=== PATIENT | female | born 1965 | race Caucasian/White ===

== ENCOUNTER 2017-06-16 06:55 | Day surgery (SDC) | payer OTHER ==
[~2017-06-16] VITALS: Ht 162.6 cm; Wt 70.8 kg
[~2017-06-16 06:55] MED LIST: FAMOTIDINE10 MG PO; LIALDA1.2 GM PO; MARLISSA1 EACH PO
[2017-06-16] MEDS ORDERED: MULTIVITAMINS1 EAC7 PO (07:10)
[2017-06-16] MEDS ORDERED: MELATONIN1 MG PO (07:11)
--- NOTE | 2017-06-16 10:51 | NUR ---
06/16/17 1051 Lulu Whelan 1032 PT ARRIVED TO PACU ASLEEP, MAINTAINING OWN AIRWAY, O2 SAT 100% ON 8L VIA MASK. 1047 O2 SAT 100%, O2 DECREASED TO 6L VIA MASK.
--- NOTE | 2017-06-16 11:58 | NUR ---
PATIENT GIVEN CRACKERS AND JELLO TO EAT. MEDICATED WITH 1 TABLET OF PERCOCET. CALL LIGHT WITHIN REACH. FAMILY AT BEDSIDE.
[2017-06-16] MEDS ORDERED: PERCOCET 5-3251 EACH PO (12:16)
[2017-06-16] MEDS ORDERED: IBUPROFEN800 MG PO (12:16)
--- NOTE | 2017-06-16 12:47 | NUR ---
PATIENT STATES PAIN IMPROVED. VISITING WITH FAMILY. VS CHECKED. NO NEEDS AT THIS TIME. CALL LIGHT WITHIN REACH.
--- NOTE | 2017-06-16 14:29 | NUR ---
PT SMILING, FRIENDLY AND INVITED ME INTO HER RM. SHE WAS SUPPORTED BY HER SIGNIFICANT OTHER, PHARMACY ORDER ENTRY TECHNICIAN AND FAMILY. SHE SEEMED INFORMED, AND REQUESTED PRAYER. WILL CONTINUE TO FOLLOW NEEDED
--- NOTE | 2017-06-16 15:20 | NUR ---
1430: PATIENT TOLERATED GRILLED CHEESE SANDWICH AND SODA. 1515: PATIENT MEDICATED FOR PAIN WITH 1 TABLET OF PERCOCET. PATIENT ASSISTED TO STAND AT BEDSIDE. PATIENT DID C/O SOME LIGHTHEADEDNESS, BUT TOLERATED IT WELL. PATIENT ASSISTED BACK TO BED. BANKS DC'D WNL. PATIENT TOLERATED BANKS DC WELL. SCDs REPLACED AND TURNED ON. CALL LIGHT WITHIN REACH.
--- NOTE | 2017-06-16 16:44 | NUR ---
1615: PATIENT ASSISTED OOB AND TO BATHROOM. GAIT STEADY. VOID WITHOUT DIFFICULTY. STAND BY ASSIST BACK TO ROOM. 1635: PATIENT GOT DRESSED WITH HELP FROM SIGNIFICANT OTHER. IV DC'D WNL. TIP INTACT. DRESSING APPLIED. DISCHARGE INSTRUCTIONS GIVEN TO PATIENT AND SO. PATIENT DISCHARGED TO HOME VIA WHEELCHAIR WITH SO.
--- NOTE | 2017-06-18 11:32 | OR ---
[facility] [address] [place], [place] [address] Signed DATE OF OPERATION: 06/16/2017 SURGEON: Raúl Bhat MD PREOPERATIVE DIAGNOSES: Heavy menstrual bleeding, postcoital bleeding, and uterine fibroids. POSTOPERATIVE DIAGNOSES: Heavy menstrual bleeding, postcoital bleeding, and uterine fibroids. PROCEDURE: Total laparoscopic hysterectomy with bilateral salpingectomy and cystoscopy. LOST AND FOUND CLERK: Dr. Cartagena. ANESTHESIA: General. ESTIMATED BLOOD LOSS: 50 mL. SPECIMEN: Uterus and both fallopian tubes. DRAINS: Serna to bladder. FINDINGS: Cervix thick, closed. Uterus slightly enlarged, uterine cavity sounding to 9 cm. There were several small subserosal fibroids, mostly near the fundus and 1 small pedunculated fibroid arising from the left posterior fundus. The anterior cul-de-sac was free of any endometriosis or adhesions. Posterior cul-de-sac was free of any endometriosis or adhesions. The left tube was normal length and normal pink fimbriated end, and no adhesions. Left ovary is normal size and shape without any evidence of endometriosis or adhesions. The right tube was normal length and normal pink fimbriated end and no adhesions. The right ovary is normal size and shape without any evidence of endometriosis or adhesions. Rest of the pelvis was free of any masses or adhesions. DESCRIPTION OF THE PROCEDURE: Electronically Signed By: RAÚL BHAT MD 06/18/17 1132 PATIENT NAME: DHRUV WILCOXN OPERATIVE REPORT DATE OF : 69 PHYSICIAN: RAÚL BHAT MD REPORT #: [id number] REPORT IS CONFIDENTIAL AND NOT TO BE RELEASED WITHOUT AUTHORIZATION [facility] [address] [place], [place] [address] Signed The patient was brought into the operating room and placed in supine position. After adequate general anesthesia was obtained, she was placed in dorsal lithotomy position, prepped and draped in the usual sterile fashion. Weighted speculum was placed in the vagina and the anterior lip of the cervix was grasped with an Allis clamp. Uterine cavity was sounded to 9 cm and then the BRIKA uterine manipulator was carefully inserted into the uterus. The balloon was filled with sterile water and then after removing the Allis clamp and weighted speculum, the cervical cap was slid up the manipulator to go around the cervix, and the vaginal cup slid up and tightened in place against the cervical cap to hold this in place. Serna catheter was placed in the bladder. Attention was then drawn to the abdomen. A small infraumbilical skin incision was made with a scalpel after injecting the area with 0.5% Marcaine with epinephrine. The direct entry 5 mm trocar and sleeve were used with 5 mm laparoscope inserted to gently insert the trocar through the abdominal wall into the abdomen under direct visualization. The abdominal wall was lifted during this procedure. After entering the abdomen, trocars were removed and laparoscope entered the abdomen, carbon dioxide was used as a distending medium. A 5 mm trocar and sleeve were then placed in the abdomen in the left lateral side just below the level of the umbilicus after transilluminating the abdominal wall to avoid any vessels, and injecting 0.5% Marcaine with epinephrine and making a small haleigh with skin incision. Trocar was removed and blunt grasper inserted. On the right side, again the abdominal wall was transilluminated. The area was injected with 0.5% Marcaine and epinephrine and a slightly larger incision was made in the skin using a scalpel. Veress needle with expandable sleeve was then placed in the abdomen under direct visualization. The Veress needle was removed and the 10 mm blunt trocar with sleeve was then gently placed through the expandable sleeve stretching the small opening in the fascia. The trocar was removed and second blunt forceps inserted. The above findings were confirmed. The LigaSure bipolar Maryland forceps were then used for the dissection. The left fallopian tube was cauterized and cut free along the mesosalpinx and then the proximal portion of the tube was cauterized and cut removing the tube, which was pulled out through the lateral port. The upper pedicle was then cauterized in several places and cut, individually incorporating the uteroovarian ligament, the round ligament, and upper part of the broad ligament. When both leaves of the broad ligament could be identified, the Maryland forceps were used to cauterize along the broad ligament down to and around the cervix anteriorly and posteriorly staying within the palpated cervical cap. The uterine vessels were then exposed and these were cauterized in several places inside the cervical cap and then cut. The paravaginal tissue around the same area was cauterized and cut on the left side. On the right side, the Maryland forceps were again used to cauterize the mesosalpinx and down the length of the tube, and then the proximal portion of the tube was cauterized across this, cut, and removed through the lateral port. Again, the upper pedicle was cauterized in several places and cut incorporating the round ligament, the uteroovarian ligament, the upper broad ligament. The broad ligament, anterior and Electronically Signed By: RAÚL BHAT MD 06/18/17 1132 PATIENT NAME: DHRUV WILCOX CRISTINA OPERATIVE REPORT DATE OF : 69 PHYSICIAN: RAÚL BHAT MD REPORT #: [id number] REPORT IS CONFIDENTIAL AND NOT TO BE RELEASED WITHOUT AUTHORIZATION [facility] [address] [place], [place] [address] Signed posterior leaves were then separately cauterized and cut down the length of the broad ligament extending medially to join the previous dissection anterior and then same thing was done posterior. This exposed the right-sided uterine vessels, which were cauterized several places and cut near the cervical cup and the paravaginal tissue cauterized and cut so that the vaginal mucosa could be seen around the rim of the cervical cap. The Sonicision instrument was then placed through the sleeve and the vaginal mucosa opened in midline posteriorly in the groove of the cervical cap. The Sonicision was then used to cut the vaginal mucosa in the groove of the cap from posterior to the anterior on the left side, and then posterior to anterior on the right side. This the uterus and cervix from the vagina. The uterus was held in placed in the cuff and attention was drawn to the vagina. The VCare uterine manipulator was removed and Allis clamp was used to grasp the cervix, which could be seen in the vagina and the uterus was removed. A glove with lap pad within was placed in the vagina so the pneumoperitoneum could be re-established. The abdomen was re-insufflated. Suction irrigation was used to clean out the pelvis. One small vessel was noted to be bleeding at the left angle and this was identified and grasped with the Maryland forceps and then cauterized twice taking care to stay in the angle and not go any deeper to avoid ureters. When good hemostasis was obtained, the entire pelvis was irrigated, suctioned, and examined. The Endo stitch barbed suture was then placed through the right sleeve and the right uterosacral ligament, and starting at the right uterosacral ligament posteriorly the vaginal mucosa was grasped and the needle passed through from the uterosacral ligament into the vaginal mucosa and the suture pulled through. The needle was then placed through a small loop and the end of the suture and tightened in place. A suture was then placed through the right side into angle incorporating the vaginal mucosa, avoiding the bladder. After passing this suture, the suture was tightened and then the entire cuff closed going across incorporating first the posterior vaginal mucosa from posterior to anterior into the mucosa and then from the mucosa out the anterior portion, each time taking care to make sure the bladder was well away from the area of dissection and incorporating the mucosa and staying within the 2 uterosacral ligaments. Upon reaching the left uterosacral ligament and the angle, the suture was taken back. Three stitches through the combined closure to lock this stitch in place and then the suture was cut with laparoscopic scissors. The entire pelvis was irrigated, suctioned, examined, and noted to have good hemostasis. At this point, the Evicel was placed on the entire surgical site to further help with control of bleeding and the gas was allowed to escape and the area was noted to remain with good hemostasis even under low pressure. Rest of the gas was allowed to escape. All sleeves were removed. The 3 skin incisions were closed with subcuticular stitches. The fascia did not need to be closed from the right side because the stretching left a small enough hole. Electronically Signed By: RAÚL BHAT MD 06/18/17 1132 PATIENT NAME: DHRUV WILCOX OPERATIVE REPORT DATE OF : 69 PHYSICIAN: RAÚL BHAT MD REPORT #: [id number] REPORT IS CONFIDENTIAL AND NOT TO BE RELEASED WITHOUT AUTHORIZATION [address] [address] Signed The glove covered sponge was removed from the vagina. Serna was removed from the bladder and the cystoscope was carefully placed in the urethra and entered the bladder under direct visualization. Sterile water was used as distending medium. The bladder dome both sides and posteriorly were examined and noted to have no sutures or bruising or lesions within. Both ureteral orifices were identified and both showed good strong flow of urine into the bladder, so the cystoscope was removed and the Serna was placed back in the bladder. The patient tolerated the procedure well and went to recovery room in good condition. The sponge, needle, and instrument counts were correct at the end of procedure. The uterus and both fallopian tubes were sent to Pathology for identification. Raúl Bhat MD MJB/MODL /[id number] cc: REJI Head Electronically Signed By: RAÚL BHAT MD 06/18/17 1132 PATIENT NAME: DHRUV WILCOX OPERATIVE REPORT DATE OF : 69 PHYSICIAN: RAÚL BHAT MD REPORT #: [id number] REPORT IS CONFIDENTIAL AND NOT TO BE RELEASED WITHOUT AUTHORIZATION
== END 2017-06-16 16:35 | disposition home or self-care (01) ==
LOC: OPS 06:55 → DS 06:55 → OPS 09:30
PROVIDERS: General Practice
PROC: 0UT94ZZ Resection of Uterus, Percutaneous Endoscopic Approach (ICD-10-PCS; principal; 2017-06-16 09:30)
PROC: 0UB74ZZ Excision of Bilateral Fallopian Tubes, Percutaneous Endoscopic Approach (ICD-10-PCS; 2017-06-16 09:30)
DX: D25.2 Subserosal leiomyoma of uterus (principal); N83.8 Other noninflammatory disorders of ovary, fallopian tube and broad ligament; D25.0 Submucous leiomyoma of uterus; D25.1 Intramural leiomyoma of uterus; N87.9 Dysplasia of cervix uteri, unspecified; N84.0 Polyp of corpus uteri; J30.2 Other seasonal allergic rhinitis; Z90.11 Acquired absence of right breast and nipple; Z98.890 Other specified postprocedural states; Z88.5 Allergy status to narcotic agent; Z88.8 Allergy status to other drugs, medicaments and biological substances; Z79.899 Other long term (current) drug therapy
CPT/HCPCS: 00944; J0690; J1100; J1644; J1885; J2250; J2370; J2405; J3010; J7120

== ENCOUNTER 2020-08-06 14:56 | Observation (INO) | payer OTHER ==
[~2020-08-06] VITALS: Ht 162.6 cm; Wt 71.0 kg
[~2020-08-06 14:56] MED LIST changes: +IBUPROFEN800 MG PO; +MELATONIN1 MG PO; +MULTIVITAMINS1 EAC7 PO; +PERCOCET 5-3251 EACH PO
[2020-08-06] MEDS ORDERED: OMEPRAZOLE20 MG PO (15:49)
[2020-08-06] MEDS ORDERED: MESALAMINE1.2 GM PO (15:49)
[2020-08-06] MEDS ORDERED: LORATADINE10 MG PO (15:49)
--- NOTE | 2020-08-06 18:36 | CONS ---
[facility] [address] [place], [place] [address] Signed DATE OF CONSULTATION: CHIEF COMPLAINT: Right lower quadrant abdominal pain. HISTORY OF PRESENT ILLNESS: Dhruv is a 55-year-old female with chronic ulcerative colitis on mesalamine. For five days now, she has had dull pain in the right lower quadrant. It was not getting any better. She finally decided to come in as an outpatient for a CT scan. She has uncomplicated appendicitis. She had been sent over the emergency room and I was asked to see her as a general surgeon on-call. In the meantime, she has been started on some IV fluids along with her Rocephin and Flagyl. PAST MEDICAL HISTORY: Ulcerative colitis, gastroesophageal reflux disease, and seasonal allergies. PAST SURGICAL HISTORY: Includes a laparoscopic partial hysterectomy, lumpectomy with bilateral breast implants for reconstruction in [facility]. SOCIAL HISTORY: She does not smoke. She has a drink once or twice a month. Her lifelong partner is Cristian Valdez at [phone]. Her mother is Shaina Tubbs at [phone]. She has 2 children born vaginally. Mathew Guevara is her physician's senior agricultural assistant and Dr. Vitaliy Altman is her rounding machine operator. She prefers the [facility] in [place] since they live in [place]. FAMILY HISTORY: Dad was a smoker and ended up with a stroke, coronary artery disease and [place]. Mom has rheumatoid arthritis. REVIEW OF SYSTEMS: Dhruv helped her family member with mastectomy back at the end of June 2020. The family member ended up with COVID the day or two after the surgery. Dhruv is quite convinced she had symptoms as well. When she spoke with her primary care provider, they did not feel it was worthwhile at that time to check a COVID test. In the meantime, she has recovered nicely from that. ALLERGIES: Iodine, contrast and meperidine. MEDICATIONS: Mesalamine, omeprazole, and loratadine. Electronically Signed By: STEPHY ACOSTA MD 08/06/20 1836 PATIENT NAME: DHRUV WILCOX CONSULTATION DATE OF : 69 REPORT #: [id number] PHYSICIAN: STEPHY ACOSTA MD PCP: MATHEW GUEVARA REPORT IS CONFIDENTIAL AND NOT TO BE RELEASED WITHOUT AUTHORIZATION [facility] [address] [place], [place] [address] Signed PHYSICAL EXAMINATION: VITAL SIGNS: Her blood pressure is 135/59, heart rate 106, respiratory rate 14, temperature is 98.3. She is 100% on room air. She is 5 feet 4 inches, 70 kg. GENERAL: Dhruv is a 55-year-old female, lying supine semi-recumbent in her ER bed. Her friend Cristian is with her. Our nurse is also with us. She does not appear systemically ill or toxic. She is an excellent historian. LUNGS: Clear to auscultation bilaterally. HEART: Slightly tachycardic without murmur. ABDOMEN: Generally soft, flat with some mild tenderness at McBurney's point. LABORATORY DATA: Her CBC and BMP are pending, but the urinalysis was unremarkable. The COVID test had been sent, it is pending. EKG showed slight sinus tachycardia. RADIOGRAPHIC STUDIES: CT scan of abdomen and pelvis is reviewed and one could see a thickened inflamed appendix. ASSESSMENT AND PLAN: Dhruv is a 55-year-old female who presents with what appears to be a mild acute appendicitis. However, she did have a full breakfast. She ate some cheese and crackers at lunch and ended up drinking some Propel an hour and half ago. I think at this point we are going to admit her to our medical floor and we will give her IV hydration along with her antibiotics and pain control and I will be talking to my Anesthesia provider about when we can do this case. In the meantime, I explained to Dhruv the above findings. We reviewed the location of function of the appendix. We discussed laparoscopic versus open appendectomy. She and her friend Cristian understand the expected intraop and postop course. They have expressed understanding and agreed the above plan. Stephy Acosta MD ALB/MODL /[id number] cc: REJI Weaver MD Electronically Signed By: STEPHY ACOSTA MD 08/06/20 1836 PATIENT NAME: DHRUV WILCOX CONSULTATION DATE OF : 69 REPORT #: [id number] PHYSICIAN: STEPHY ACOSTA MD PCP: MATHEW GUEVARA REPORT IS CONFIDENTIAL AND NOT TO BE RELEASED WITHOUT AUTHORIZATION [address] [address] Signed Stephy Acosta MD Copies: MATHEW GUEVARA CHARLES MD BOWER, ANDREW L MD ~ Electronically Signed By: STEPHY ACOSTA MD 08/06/20 1836 PATIENT NAME: JERIDHRUV CRISTINA CONSULTATION DATE OF : 69 REPORT #: [id number] PHYSICIAN: STEPHY ACOSTA MD PCP: MATHEW GUEVARA REPORT IS CONFIDENTIAL AND NOT TO BE RELEASED WITHOUT AUTHORIZATION
--- NOTE | 2020-08-06 18:49 | NUR ---
08/06/201848 Bailey Jean-Baptiste8 INTO CCU RM 130 PATIENT BREATHING REGULAR AND EVEN, OXYGEN SATURATION 100% 6L MASK. PATIENT DROWSY, RESPONDS TO VERBAL STIMULI. DRESSING LAP SITES C/D/I. PATIENT BLADDER DRAINED AT END OF PRECEDURE.
--- NOTE | 2020-08-06 19:05 | NUR ---
PACU NURSE OUT OF ROOM, REPORT GIVEN TO KING RN AND THEN TO THIS RN. PATIENT CURRENTLY ON THE MONITOR, VS STABLE.
--- NOTE | 2020-08-06 19:25 | NUR ---
RT IN ROOM. PATIENT TOLERATING ROOM AIR. VS STABLE. DENIED ANY NEEDS. CALL LIGHT IN REACH.
--- NOTE | 2020-08-06 20:00 | NUR ---
PATIENT IS ALERT. REPORTS FEELING "WOOZY" AFTER SURGERY. VS STABLE. PAIN 5/10, MILD NAUSEA. PRN PAIN MEDS PROVIDED. SIPS OF WATER ENCOURAGED. PATIENT VS STABLE. DENIED NEED TO VOID. LAP SITES ON ABD WNL, SMALL AMOUNT OF DRAINAGE NOTED ON DRESSINGS. PATIENT ENCOURAGED TO TAKE DEEP BREATHS, PILLOW PROVIDED FOR SPLINTING. ICE PACK OFFERED, PATIENT COLD AT THIS TIME. WARM BLANKET APPLIED. IV FLUIDS STARTED PER ORDER, SITE WNL. PATIENT'S CONTACT AT BEDSIDE. PROVIDED GLASSES FROM [employer] BAG.
--- NOTE | 2020-08-06 21:07 | NUR ---
PATIENT ALERT. USING HER CELLPHONE. DENIES ANY NEEDS AT THIS TIME. VS STABLE.
--- NOTE | 2020-08-06 22:14 | NUR ---
PATIENT UP TO THE BATHROOM. VOIDED WELL. WASHED HER FACE. PATIENT THEN FELT NAUSEOUS AND HAD SOME DRY HEAVES. ASSISTED PATIENT TO BED. PROVIDED PHENERGAN SLOWLY OVER 10 MINS. PATIENT DID NOT VOMIT. EMESIS BAG IN REACH. SCHEDULED ABX STARTED, IV SITE WNL. LIGHTS DIMMED. ICE PACK PROVIDED TO ABD. PATIENT DENIED FURTHER NEEDS. CALL LIGHT IN REACH.
--- NOTE | 2020-08-06 23:00 | NUR ---
PATIENT RESTING IN BED WATCHING TV. REPORTS GOOD PAIN CONTROL AT REST. ICE PACK IN PLACE. DRESSINGS INTACT. NO NAUSEA. IV FLUIDS PER ORDER, SITE WNL. VS STABLE.
--- NOTE | 2020-08-07 01:30 | NUR ---
PATIENT UP TO THE BATHROOM. TOLERATED ACTIVITY WELL. VOIDED QS. NO NAUSEA. PAIN MILD WITH MOVEMENT. WARM BLANKET PROVIDED. JELLO AND WARM BROTH PROVIDED PER REQUEST. PATIENT TOLERATED 250 ML WATER AT THIS TIME. NO OTHER NEEDS. CALL LIGHT IN REACH.
--- NOTE | 2020-08-07 05:21 | NUR ---
PATIENT UP TO THE BATHROOM. STEADY ON HER FEET. VOIDED QS. PAIN TOLERABLE AT THIS TIME. FRESH ICE PACKS PROVIDED. VS STABLE. IV FLUIDS PER ORDER, SITE WNL. CALL LIGHT IN REACH.
--- NOTE | 2020-08-07 06:19 | NUR ---
MORNING LABS DRAWN FOR IV SITE. PATIENT REPORTS PAIN 8/10 WITH SMALL MOVEMENTS. PROVIDED PATIENT WITH JELLO AND 2 SALTINES. PATIENT TOLERATED WELL. PRN NORCO PROVIDED. NO NAUSEA. ICE APPLIED TO ABD. IV ABX PER ORDER. NO FURTHER NEEDS AT THIS TIME. CALL LIGHT IN REACH.
--- NOTE | 2020-08-07 06:57 | OR ---
[facility] [address] [place], [place] [address] Signed DATE OF OPERATION: 08/06/2020 SURGEON: Stephy Acosta MD PREOPERATIVE DIAGNOSIS: Acute suppurative appendicitis. POSTOPERATIVE DIAGNOSIS: Acute suppurative appendicitis. PROCEDURE: Laparoscopic appendectomy. ESTIMATED BLOOD LOSS: Minimal. INDICATIONS: Dhruv is a 55-year-old female, who was sent to our radiology department with five days of right lower quadrant abdominal pain. Her CT scan confirmed her thickened inflamed appendix. She was sent over to the emergency room. Once I finished operating, went over to see her about 30 minutes later. Her laboratory work was still pending. Her COVID test came back positive. She told us that her family member had a mastectomy on July 02, 2020, and tested positive for COVID the following day, within a few days she developed symptoms. After conferring with her primary care provider, they decided not to proceed with the COVID test. She recovered from her symptoms and is now doing quite well. In fact, after five days of right lower quadrant abdominal pain she does not even appear particularly sick or ill, although she is tender in the right lower quadrant. Again, the CT scan confirmed her appendicitis. In the meantime, we made arrangements for her to come over to the operating room to have her surgery done. I explained to Dhruv and her lifelong partner the above findings. We discussed the location and function of the appendix. We discussed laparoscopic versus open appendectomy. We had reviewed the expected intraop and postop course. We did review the risks including, but not limited to bleeding, infection, scarring, change in contour of the skin, damage to bowel, appendiceal stump leak, postoperative intraabdominal abscess, incisional hernias, and other unforeseen comorbidities. They had expressed understanding and wished to proceed. DESCRIPTION OF PROCEDURE: Dhruv was taken into the operating room and placed in the supine position under general endotracheal tube anesthesia. She was given preoperative antibiotics along with Electronically Signed By: STEPHY ACOSTA MD 08/07/20 0657 PATIENT NAME: DHRUV WILCOX OPERATIVE REPORT DATE OF : 69 REPORT #: [id number] PHYSICIAN: STEPHY ACOSTA MD PCP: MATHEW LANGLEY REPORT IS CONFIDENTIAL AND NOT TO BE RELEASED WITHOUT AUTHORIZATION [facility] [address] [place], [place] [address] Signed subcutaneous heparin. SCDs were utilized. She told the nurse she had urinated just before coming to the OR and felt she had emptied her bladder. When we placed the [place] trocar above the umbilicus, we could see the bladder was one-half to 3 cores away full. Consequently, we placed our suprapubic 5 mm trocar site to a higher than usual. We also placed our trocar in the right subcostal position as well. The bowel was rotated out of the way and her appendix was curling around the cecum towards the lateral abdominal wall. It was elevated into the right upper quadrant. We cleared off the base with the cautery and divided the appendix from the cecum with the help of a linear stapler. We then used our vascular load on the mesoappendix and divided all with good hemostasis. The appendix was then placed into an EndoCatch bag and taken out through the right subcostal trocar site. We used our laparoscopic suturing device to pass 0-Vicryl suture x2 on either side of the fascia of the right subcostal trocar site. These two sutures were tied down to close the fascia primarily. The gas was allowed to escape and the remaining two trocars were removed. The appendix was passed off the table for photodocumentation. We closed the fascia of the supraumbilical trocar site with interrupted simple [id number] 0-Vicryl sutures. Local anesthetic was injected into all 3 trocar sites. Each trocar site was irrigated and suctioned out until clear. The skin and dermis of each trocar site were closed with interrupted 3-0 subcuticular Monocryl sutures. Dry gauze and tape were applied to all three incisions. After this, Dhruv was left intubated and a Serna catheter was placed with return of clear yellow urine without difficulty. We are going to remove that Serna catheter in the recovery room once the bladder was completely empty. Stephy Acosta MD ALB/MODL /[id number] cc: REJI Weaver MD Copies: MATHEW LANGLEY Electronically Signed By: STEPHY ACOSTA MD 08/07/20 0657 PATIENT NAME: DHRUV WILCOX OPERATIVE REPORT DATE OF : 69 REPORT #: [id number] PHYSICIAN: STEPHY ACOSTA MD PCP: MATHEW LANGLEY REPORT IS CONFIDENTIAL AND NOT TO BE RELEASED WITHOUT AUTHORIZATION [address] [place], [place] [address] Signed STEHPY ACOSTA MD ~ Electronically Signed By: STEPHY ACOSTA MD 08/07/20 0657 PATIENT NAME: DHRUV WILCOX OPERATIVE REPORT DATE OF : 69 REPORT #: [id number] PHYSICIAN: STEPHY ACOSTA MD PCP: MATHEW LANGLEY REPORT IS CONFIDENTIAL AND NOT TO BE RELEASED WITHOUT AUTHORIZATION
--- NOTE | 2020-08-07 08:31 | NUR ---
Helped pt. to bathroom, took vitals, refilled water, gave breakfast picked up joseluis. no other needs at this time. call light with in reach.
--- NOTE | 2020-08-07 08:45 | NUR ---
PT ATTENDS CHANGED, INCONTINENT OF LARGE AMOUNT OF SONI URINE. PT REPOSITIONED UP IN BED FOR COMFORT, TWO PILLOWS UNDER HIPS FOR SUPPORT. PT STATES "OUCH" WHEN ROLLED FROM SIDE TO SIDE. TYLENOL SUPPOSITORY GIVEN FOR PAIN/DISCOMFORT.
--- NOTE | 2020-08-07 10:20 | NUR ---
PT UP TO THE CHAIR INDEPENDENTLY. PT GIVEN TWO TABS NORCO FOR ABD PAIN 6/10. PT TAKES WITH APPLESAUCE. PT IS ALERT AND ORIENTED X4. PT DENIES NAUSEA AND SOB. INCISION SITE IS INTACT, NO DRAINAGE NOTED, PT HAS ICE PACK IN PLACE.
--- NOTE | 2020-08-07 11:32 | NUR ---
SPOKE WITH DIAGNOSTIC RADIOLOGIST. PATIENT IS COVID + SO WILL NOT ENTER ROOM. PATIENT IS INDEPENDENT/HAS PCP, WILL FOLLOW UP WITH SURGEON AT DISCHARGE AND WILL DISCHARGE HOME. IF ANYTHING ARISES OF CONCERN THEY WILL CONTACT CASE MANAGEMENT. WILL DEFER FURTHER ASSESSMENT.
--- NOTE | 2020-08-07 11:33 | NUR ---
PT AIDE RAM, HAD LAP APPY. IS TO DC TODAY. LEFT G.POST AND OTHER MATERIAL FOR PT WITH THAIS ZAMORA. WILL FOLLOW
--- NOTE | 2020-08-07 11:50 | NUR ---
PT SITTING UP IN THE CHAIR, STATES "I'M HURTING JUST SITTING HERE", 0.3 MG IV DILAUDID GIVEN. PT HAS BEEN UP TO AMBULATE TO THE BATHROOM THREE TIMES INDEPENDENTLY TO VOID. PT REMAINS ALERT AND ORIENTED X4 ALL SHIFT. PT BACK TO BED FROM CHAIR AT THIS TIME, STATES "I DIDN'T SLEEP VERY WELL LAST NIGHT, I THINK I MIGHT TRY TO TAKE A NAP". PT DENIES LUNCH AT THIS TIME, STATES "I STILL FEEL FULL". BOWEL TONES ARE HYPOACTIVE. ALL VITALS ARE WNL. LAP INCISION SITES ARE INTACT, NO DRAINAGE NOTED, PT HAS ICE PACK IN PLACE.
--- NOTE | 2020-08-07 12:18 | EKG ---
[facility] [address] [facility] [place], [place] [address] Signed Sinus tachycardia Otherwise normal ECG No previous ECGs available Confirmed by LIZETH THURSTON MD ([id number]) on 08/07/2020 12:18:15 PM Electronically Signed By: LIZETH THURSTON MD 08/07/20 1218 PATIENT NAME: DHRUV WILCOX CRISTINA Electrocardiogram DATE OF : 69 PHYSICIAN: LIZETH THURSTON MD REPORT #: [id number] REPORT IS CONFIDENTIAL AND NOT TO BE RELEASED WITHOUT AUTHORIZATION
--- NOTE | 2020-08-07 13:33 | NUR ---
PT APPEARS TO BE SLEEPING, RESP EVEN AND UNLABORED, NO OBSERVABLE DISTRESS.
--- NOTE | 2020-08-07 19:38 | NUR ---
SHIFT REPORT RECEIVED FROM CODY PLASCENCIA. PT RESTING IN BED, WATCHING TV. CALL LIGHT IN REACH.
--- NOTE | 2020-08-07 20:50 | NUR ---
ASSESSMENT, VS AND I&O COMPLETED. UNABLE TO LISTEN TO LUNGS, HEART AND BOWELS DUE TO PAPR. HR 74, RR EVEN, UNLABORED @ 16. PT REPORTS FLATUS. PT STATES HSE HAS NO PAINB AT THIS TIME BUT DID HAVE EMESIS AFTER DINNER. SHE IS ABLE TO KEEP FLUIDS DOWN AND HAS NO NAUSEA AT THIS TIME. INCISIONS WNL, OPEN TO AIR AND DRY. ABD SOFT, TENDER, MILDLY DISTENDED. IV WNL, CDI, FLUSHED WELL. CMS INTACT. IUV FLUYIDS INFUSING PER ORDER. NO OTHER NEEDS AT THIS TIME. CALL LIGHT IN REACH.
--- NOTE | 2020-08-07 21:55 | NUR ---
SCHEDULED MEDS PROVIDED. ICE WATER, CRACKERS, JELLO AND A COLD PACK PROVIDED. NO OTHER NEEDS AT THIS TIME. CALL LIGHT IN REACH.
--- NOTE | 2020-08-07 22:33 | NUR ---
PT STATES SHE HAS NAUSEA, PRN NAUSEA MED PROVIDED. IV FLUIDS INFUSING PER ORDER. PT PAIN 0/10 LAYING IN BED. NO OTHER NEEDS AT THIS TIME. CALL LIGHT IN REACH.
--- NOTE | 2020-08-08 00:47 | NUR ---
ASSESSMENT, VS AND I&O COMPLETED. PT DENIES PAIN WHILE AT REST. INCISIONS WNL, OCCUPATIONAL THERAPIST ASSISTANTS. IV WNL, IV FLUIDS INFUSING PER ORDER. ABD SOFT, TENDER, BOWEL TONES ACTIVE. CMS INTACT. NO OTHER NEEDS AT THIS TIME. CALL LIGHT IN REACH.
--- NOTE | 2020-08-08 01:52 | NUR ---
PT RESTING IN BED, EYES CLOSED. RR EVEN, UNLABORED. IV FLUIDS INFUSING PER ORDER. CALL LIGHT IN REACH.
--- NOTE | 2020-08-08 02:19 | NUR ---
PT RESTING WITH EYES CLOSED. WAKES WHEN RN ENTERS ROOM. NEW BAG IV FLUIDS PROVIDED. IV WNL. NO OTHER NEEDS AT THIS TIME. CALL LIGHT IN REACH.
--- NOTE | 2020-08-08 03:00 | NUR ---
PT RESTING IN BED, EYES CLOSED. RR EVEN, UNLABORED. IV FLUIDS INFUSING PER ORDER. CALL LIGHT IN REACH.
--- NOTE | 2020-08-08 05:54 | NUR ---
ASSESSMENT, VS AND I&O COMPLETED. SCHEDULED MED PROVIDED. PT ABD PAIN 10/22, ICE PACK PROVIDED. IV WNL. ABD SOFT, TENDER, BOWEL TONES ACTIVE. INCISIONS WNL, OPEN TO AIR, DRY. CMS INTACT. SCDs ON. LUNGS CLEAR, HEART TONES REGULAR. GCS 15, A&O X4. NO OTHER NEEDS AT THIS TIME. CALL LIGHT IN REACH.
--- NOTE | 2020-08-08 08:53 | NUR ---
Took pt. vitals. picked up room. no other needs at this time. call light with in reach
--- NOTE | 2020-08-08 09:03 | NUR ---
PT IS AWAKE AND ALERT X4, DENIES SOB AND NAUSEA. IV SITE IS INTACT, FLUSHES EASILY, SOME GENERALIZED EDEMA NOTED IN RT LOWER ARM, WILL CONTINUE TO MONITOR. PT ABLE TO AMBULATE TO THE BATHROOM TO VOID AND DO AM CARES AT THE SINK. PT REPORTS ABD PAIN WITH ACTIVITY, PARTICULARLY IN UPPER RT QUAD. SOME BRUISING NOTED IN THIS AREA. ALL 3 LAP SITES INTACT.
--- NOTE | 2020-08-08 10:10 | NUR ---
pt ambulates independently to the bathroom and back to chair. pt reports that pain is improved since pain medication, reports it to be tollerable at 3/10 with activity and 1/10 when still. pt breakfast of yogurt and coffee delivered. pt remains alert and oriented x4. pt denies nausea and sob. lap sites are intact, scant drainage noted on pt gown. pt has ice pack in place on right upper quadrent.
--- NOTE | 2020-08-08 12:45 | NUR ---
IV SITE INTACT, FLUIDS AND FLUSHES INFUSE EASILY, SOME GENERALIZED EDEMA NOTED IN RT LOWER ARM. PT ALERT AND ORIENTED X4.
--- NOTE | 2020-08-08 15:38 | NUR ---
CALLED TO UPDATE ON PT MOVING TO MED/SURG FLOORS FOR HOUSE CONVENIENCE. UPDATED ON PT STATUS WELL, IV FLUIDS CHANGED FROM RATE OF 75 ML/HR TO 50ML/HR. NO FURTHER ORDERS AT THIS TIME.
--- NOTE | 2020-08-08 16:11 | NUR ---
REPORT RECEIVED, PT TRANSPORTED VIA BED TO MED-SURG. FRESH H20 AT BEDSIDE CALL LIGHT IN HAND, PERSONAL ITEMS IN REACH. PT AGREES SHE IS COMFORTABLE DENIES NEEDS. ICE BAG ON ABDOMEN FOR COMFORT. PT DEMONSTRATES PROPER TECHNIQUE USING I/S. PT AGREES TO GET UP AND MOVE AROUND HER ROOM AND SIT UP IN THE CHAIR. DISCUSSED REASONS TO BE UP MOVING AND SCD'S IN BED. PT VERBALIZES UNDERSTANDING.
--- NOTE | 2020-08-08 17:04 | NUR ---
PT UP TO THE CHAIR FOR EVENING MEAL, DENIES NAUSEA BUT AGREES SHE IS READY FOR SOMETHING FOR PAIN.
--- NOTE | 2020-08-08 17:17 | NUR ---
DR ACOSTA NOTIFIED OF INFILTRATED IV STATES IT'S OKAY TO LEAVE IT OUT. WILL REPLACE IF PT REQUIRES IV MEDS, BUT APPEARS UNLIKELY. PT HAS DENIED NAUSEA AND IS EATING HARDILY USING IBUPROFEN FOR PAIN.
--- NOTE | 2020-08-08 17:27 | NUR ---
REPORTED TO DR ACOSTA WHEN IV ABX WERE DUE HE GIVES NEW ORDERS FOR PO MEDS TO START TOMORROW.
--- NOTE | 2020-08-08 18:13 | NUR ---
PT CONTINUES UP IN THE CHAIR, TOLERATES 100% OF EVENING MEAL NO C/O NAUSESA OR PAIN. FRESH ICE WATER H20 PROVIDED, FRESH ICE PACK FOR ABDOMEN WELL. PT AGREES TO STAY UP IN THE CHAIR FOR A TIME BEFORE GOING TO BED. I/S ENCOURAGED.
--- NOTE | 2020-08-08 19:15 | NUR ---
SHIFT REPORT RECEIVED FROM DAYSHIFT RN LARISA AT BEDSIDE. PT AWAKE AND RESTING IN BED, NO CONCERNS OR NEEDS VERBALIZED. CALL LIGHT IN REACH, PT INDEPENDENT IN ROOM PER REPORT.
--- NOTE | 2020-08-08 20:30 | NUR ---
ASSESSMENT COMPLETE, SCHEDULED HEPARIN GIVEN (SEE EMAR). PT DENIES NAUSEA AND REPORTS TOLERABLE 2/10 PAIN. EDUCATION GIVEN ON PAIN MANAGEMENT. PT VERBALIZED UNDERSTANDING. SCD'S IN PLACE, PT HAD RECENT BM X1 LOOSE. PARTIAL BED CHANGE COMPELTE, PT AGREES TO WEAR SCD'S, WILL LEAVE SCD'S OFF IF SHE BEGINS HAVING MULTIPLE BM'S FOR EASY ACCESS TO BATHROOM. LAP SITES X3 DUST PULLER, WELL APPOXIMATED. NO SIGNS OF INFECTION. ICE PACK GIVEN PER PT REQUEST. PT INDEPENDENT IN ROOM.VSS AND I&O'S COMPLETE. NO FURTHER NEEDS, CALL LIGHT IN REACH.
--- NOTE | 2020-08-08 23:11 | NUR ---
pt RESTING IN BED, EYES CLOSED. RR EVEN AND UNLABORED. NO DISTRESS NOTED. pt APPEARS COMFORTABLE, NO DISTRESS NOTED. CALL LIGHT IN REACH.
--- NOTE | 2020-08-08 23:49 | NUR ---
pt CALLED AND STATES, "I WENT TO THE BATHROOM AGAIN AND FILLED THE HAT". pt ALSO REPORTS LIQUID BM. DENIES ADDITIONAL NEEDS, pt INDEPENDENT IN THE ROOM.
--- NOTE | 2020-08-09 00:53 | NUR ---
pt CALLED, REQUESTING NEW ICE PACK AND SNACK, STATING "MY STOMACH IS RUMBLING". SNACK AND ICE PACK PROVIDED BY THERAPEUTIC CONSULTANT.
--- NOTE | 2020-08-09 00:54 | NUR ---
IV SITE INFILTRATED ON 08/08/20 ON DAYSHIFT, PER CONVERSATION DAYSHIFT RN LARISA HAD WITH DR ACOSTA AT 1717, pt IS OKAY TO HAVE IV SITE OUT. RN NOTIFY ORDER PLACED AND ORDERS IN EMAR UPDATED.
--- NOTE | 2020-08-09 00:55 | NUR ---
PROVIDE PT JELLO, ICE PACK, AND ICE WATER, NO FURTHER NEEDS AT THIS TIME
--- NOTE | 2020-08-09 01:29 | NUR ---
pt AWAKE AND RESTING IN BED, REPORTS SOME NAUSEA FOLLOWING SNACK ALONG WITH 3/10 PAIN IN RLE, pt DENIES NEED FOR MEDICATION AT THIS TIME. WILL CONTINUE TO MONITOR. SCD'S NOTED TO BE OFF AT THIS TIME. NO ADDITIONAL NEEDS VERBALIZED, CALL LIGHT IN REACH.
--- NOTE | 2020-08-09 03:29 | NUR ---
CALL LIGHT ON. pt REQUESTED A "LITTLE" PAIN MEDICATION. REPORTED SHE COUGHED AND IT HURT AND WOKE HER UP. DISCUSSED PAIN MANAGEMENT, PRN GIVEN (SEE MAR). PROVIDED PUDDING. NO FURTHER REQUESTS AT THIS TIME. CALL LIGHT WITHIN REACH.
--- NOTE | 2020-08-09 05:46 | NUR ---
ASSESSMENT COMPLETE, NO NEW CHANGES OR CONCERNS. pt AWAKE AND RESTING IN BED, REPORTS TOLERABLE 2/10 PAIN IN ABD. pt REPORTED SOME CHEST DISCOMFORT R/T PAIN W/ COUGHING, ICE PACK TO ABD PRN AT BEDSIDE. IS ALSO AT BEDSIDE. pt DENIES SOB OR DYSPNEA. DENIES NAUSEA, LAP SITES X3 UNCHANGES. VSS AND I&O'S COMPLETE. NO FURTHER NEEDS, CALL LIGHT IN REACH.
[2020-08-09] MEDS ORDERED: TYLENOL325 MG PO (10:43)
[2020-08-09] MEDS ORDERED: ADVIL200 MG PO (10:44)
--- NOTE | 2020-08-09 12:28 | NUR ---
Ibuprofen 800po admin for reports of 2/10 abd pain.
--- NOTE | 2020-08-09 17:08 | DS ---
[facility] [address] [place], [place] [address] Signed ADMISSION DATE: 08/06/2020 DISCHARGE DATE: FINAL DIAGNOSIS: Acute suppurative appendicitis. PROCEDURE: Laparoscopic appendectomy. HISTORY OF PRESENT ILLNESS: Dhruv is a 55-year-old female with a long history of ulcerative colitis on mesalamine. She developed about five days of right lower quadrant abdominal pain. She finally was sent to the Radiology Department for a CT scan. It showed her acute appendicitis. I had admitted her as the general surgeon on-call. She was started on IV fluids and/or antibiotics and taken to the operating room later that same day. HOSPITAL COURSE: Dhruv went to the operating room on 08/06/2020 for an uncomplicated laparoscopic appendectomy. She had acute suppurative appendicitis. Her intra and postop course have been uncomplicated. She has mobilized her fluids the last couple of days and she has had several bowel movements with lots of flatus. However, she is still moderately distended, although mildly firm. No nausea or vomiting. She is tolerating her full liquid diet. She has been controlling her minimal right lower quadrant abdominal pain and incisional pain with Tylenol and ibuprofen. From the very beginning, she has been very anxious to go home. She lives with her lifelong partner, Cristian. This morning, she performed her activities of daily living without difficulties and feels comfortable going home. DISCHARGE PLANS AND MEDICATIONS: Dhruv will be discharged to home with no prescription for narcotics. She can continue Tylenol, ibuprofen, and Aleve as needed for pain. She will continue a soft diet for now and after her abdominal distention resolves in a few days, she can advance to a regular diet. I have asked her not to do any heavy pushing, pulling, or lifting over about 20 pounds. She can certainly perform her activities of daily living including walking up and down stairs and showering and bathing as usual. I have asked her to resume the mesalamine on 08/13/2020. She can resume her other chronic medications including omeprazole and loratadine today. I will see her back in my office in about 7 to 10 days for surgical followup. She told me she sees her prom burn off operator once a year because of ulcerative colitis. She is more than welcome to follow up with Dr. Robert Orr in the next 1-2 months. He took over for Dr. Vitaliy Basurto who is now retired. In addition, Electronically Signed By: STEPHY ACOSTA MD 08/09/20 1708 PATIENT NAME: DHRUV WILCOX DISCHARGE SUMMARY DATE OF : 69 REPORT #: [id number] PHYSICIAN: STEPHY ACOSTA MD PCP: MATHEW LANGLEY REPORT IS CONFIDENTIAL AND NOT TO BE RELEASED WITHOUT AUTHORIZATION [address] [address] Signed she can follow up with her primary care provider as usual. She has expressed understanding and agrees of above plan. MD FARZANEH Giles/ROBERTL /[id number] cc: MD Robert Giles, REJI English Copies: STEPHY ACOSTA MD,MATHEW LARSON MD ~ Electronically Signed By: STEPHY ACOSTA MD 08/09/20 1708 PATIENT NAME: DHRUV WILCOX DISCHARGE SUMMARY DATE OF : 69 REPORT #: [id number] PHYSICIAN: STEPHY ACOSTA MD PCP: MATHEW LANGLEY REPORT IS CONFIDENTIAL AND NOT TO BE RELEASED WITHOUT AUTHORIZATION
--- NOTE | 2020-08-12 12:29 | PATH ---
[facility] [address] [place], [place] [address] Signed SPECIMEN(S): A APPENDIX SPECIMEN SOURCE: A. APPENDIX CLINICAL HISTORY: Acute appendicitis. FINAL PATHOLOGIC DIAGNOSIS: Appendix, appendectomy: - Acute appendicitis. - Fibrous obliteration of the appendiceal tip. - One benign reactive lymph node. BRP:cml:C2NR MICROSCOPIC EXAMINATION: Histologic sections of all submitted blocks are examined by light microscopy. These findings, together with the gross examination, support the pathologic diagnosis. GROSS DESCRIPTION: The specimen, labeled "PORFIRIO, appendix," is received in formalin and consists of Specimen: Appendix with mesoappendix. Dimensions: 8.0 x 2.2 x 1.0 cm. Serosa: [place]-stoner to hemorrhagic and congested. Perforation: Not grossly identified. Inking: Staple line is inked black. Mucosa: [place]-stoner to hemorrhagic. Fecalith: Not grossly identified. Additional: None. Bankman sections are submitted in cassette (A1). AC (under the direct supervision of a pathologist) The Gross Description was prepared using a voice recognition system. The report was reviewed for accuracy; however, sound-alike word errors, addition and/or deletions may occur. If there is any question about this report, please contact Client Services. PERFORMING LABORATORY: The technical component was performed by [employer], [address] [place] [id number] ([employer]os[employer] Truck Driver: Whitney Weeks MD; CLIA# [id number]). Professional interpretation was performed by PATIENT NAME: DHRUV WILCOX PATHOLOGY DATE OF : 69 REPORT #: [id number] PHYSICIAN: JESÚS PATHOLOGY PCP: MATHEW LANGLEY REPORT IS CONFIDENTIAL AND NOT TO BE RELEASED WITHOUT AUTHORIZATION [facility] [address] [place], [place] [address] Signed [facility], [facility], [address] [facility], [facility] [address], [place] [address] (CLIA# [id number]). Diagnostician: Clint Handy MD Pathologist Electronically Signed 08/12/2020 Copies: ~ PATIENT NAME: DHRUV WILCOX PATHOLOGY DATE OF : 69 REPORT #: [id number] PHYSICIAN: JESÚS PATHOLOGY PCP: MATHEW LANGLEY REPORT IS CONFIDENTIAL AND NOT TO BE RELEASED WITHOUT AUTHORIZATION
== END 2020-08-09 13:00 | disposition home or self-care (01) ==
LOC: ED 14:56 → MS 14:59 → CCU 14:59 → ED 14:59 → MS 17:02 → CCU 08-08 15:45 → MS 08-09 13:00
PROVIDERS: ADMIT Colon & Rectal Surgery; ATTEND Colon & Rectal Surgery
PROC: 0DTJ4ZZ Resection of Appendix, Percutaneous Endoscopic Approach (ICD-10-PCS; principal; 2020-08-06 16:49)
DX: K35.80 Unspecified acute appendicitis (principal); K21.9 Gastro-esophageal reflux disease without esophagitis; J30.2 Other seasonal allergic rhinitis; G47.30 Sleep apnea, unspecified; F41.9 Anxiety disorder, unspecified; F41.0 Panic disorder [episodic paroxysmal anxiety]; Z88.8 Allergy status to other drugs, medicaments and biological substances; Z91.041 Radiographic dye allergy status; Z79.899 Other long term (current) drug therapy; Z87.19 Personal history of other diseases of the digestive system; Z20.828 Contact with and (suspected) exposure to other viral communicable diseases
CPT/HCPCS: 00840; 80048; 80053; 81001; 83690; 83735; 84100; 85025; 88304; 93005; 93010; 96365; 96366; 96367; 96372; 96374; 96375; 96376; 99285-25; C9803; G0378; J0330; J0696; J1100; J1170; J1644; J1885; J2001; J2250; J2405; J2550; J2704; J7030; J7060; J7121; U0003